=== PATIENT | male | born 1990 | race Caucasian/White ===

== ENCOUNTER 2023-02-02 19:18 | Emergency (ER) | payer OTHER, MEDICAID | END 2023-02-02 20:08 | disposition home or self-care (01) | LOC: MW.ED 19:18 | DX: L20.9 Atopic dermatitis, unspecified (principal) | CPT/HCPCS: 99282 ==

== ENCOUNTER 2023-05-14 06:44 | Emergency (ER) | payer OTHER, MEDICAID ==
[2023-05-14] MEDS ORDERED: Dexamethasone 10 MG/ML SDV PO ONE (07:37)
[2023-05-14] MEDS ORDERED: Ibuprofen 400 MG Tab PO ONE (07:37)
[2023-05-14] MEDS ORDERED: Acetaminophen 325 MG Tab PO ONE (07:37)
== END 2023-05-14 08:16 | disposition home or self-care (01) ==
LOC: MW.ED 06:44
DX: J02.9 Acute pharyngitis, unspecified (principal)
CPT/HCPCS: 99283; A9270; J8540

== ENCOUNTER 2023-07-25 14:42 | Emergency (ER) | payer OTHER, MEDICAID ==
[2023-07-25] MEDS ORDERED: Tetracaine HCl/PF 0.5% 4 ML Bottle EYEBOTH ONE (15:20)
== END 2023-07-25 15:59 | disposition home or self-care (01) ==
LOC: MW.ED 14:42
DX: S05.52XA Penetrating wound with foreign body of left eyeball, initial encounter (principal); W45.8XXA Other foreign body or object entering through skin, initial encounter
CPT/HCPCS: 99282; 99283; J3490